=== PATIENT | male | born 1985 | race Caucasian/White ===

== ENCOUNTER 2019-12-09 08:07 | Observation (INO) | payer OTHER, BC ==
[2019-12-09] MEDS ORDERED: METHYLPREDNISOLONE INJ 40 MG/1 ML SDV IV ONE (09:45)
[2019-12-09] MEDS ORDERED: KETOROLAC TROMETHAMINE INJ/PF 30 MG/1 ML SDV IV ONE (09:45)
[2019-12-09] MEDS ORDERED: DIPHENHYDRAMINE HCL 50 MG/ML VIAL IV ONE (09:45)
--- NOTE | 2019-12-09 10:40 | ER Document Report ---
ED General - General Chief Complaint: Arm Problem Stated Complaint: INSECT BITE Time Seen by Provider: 12/09/19 09:19 Notes: [id number]-puxprmbx male presents with left forearm pain distally at the site of an insect or spider bite sustained while he was - Related Data Allergies/Adverse Reactions: No Known Allergies Allergy (Verified 12/09/19 09:13) Past Medical History - Social History Smoking Status: Never Smoker Chew tobacco use (# tins/day): No Frequency of alcohol use: Occasional Drug Abuse: None Patient has homicidal ideation: No Physical Exam - Vital signs Vitals: Temp Pulse Resp BP Pulse Ox 98.3 F 59 L 17 130/81 H 100 12/09/19 08:18 12/09/19 08:18 12/09/19 08:18 12/09/19 08:18 12/09/19 08:18 Course - Vital Signs Vital signs: Temp Pulse Resp BP Pulse Ox 98.3 F 59 L 17 130/81 H 100 12/09/19 09:14 12/09/19 08:18 12/09/19 08:18 12/09/19 08:18 12/09/19 08:18
--- NOTE | 2019-12-09 10:43 | ER Document Report ---
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 This started a few hours ago. Yesterday he was cleaning out a hole in the dirt and was called on by multiple spiders including what he thought was a black , and aunts and bees. He is not sure what bit him or stung him but he did get a wound on the volar wrist which is progressed to redness swelling and tightness in the forearm. It radiates up to his elbow and down to his fingers. No tingling other than the fingers, no systemic symptoms belly pain cramping etc. No open wounds but spreading redness and pressure. - Related Data Allergies/Adverse Reactions: No Known Allergies Allergy (Verified 12/09/19 09:13) Past Medical History - General Information source: Patient - Social History Smoking Status: Never Smoker Chew tobacco use (# tins/day): No Frequency of alcohol use: Occasional Drug Abuse: None Family History: None Patient has homicidal ideation: No Review of Systems - Review of Systems Notes: REVIEW OF SYSTEMS GEN: Denies fever, chills, weight loss ENT: Denies sore throat, nasal discharge, ear pain EYES: Denies blurry vision, eye pain, discharge CV: Denies chest pain, palpitations, edema RESP: Denies cough, shortness of breath, wheezing GI: Denies abdominal pain, nausea, vomiting, diarrhea MSK: Arm pain SKIN: Denies rash, skin lesions LYMPH: Denies swollen glands/lymph nodes NEURO: Tingling in fingers PHYSICAL EXAMINATION General: No acute distress, well-nourished Head: Atraumatic, normocephalic ENT: Mouth normal, oropharynx moist, no exudates or tonsillar enlargement Eyes: Conjunctiva normal, pupils equal, lids normal Neck: No JVD, supple, no guarding CVS: Normal rate, regular rhythm, no murmurs Resp: No resp distress, equal and normal breath sounds bilaterally GI: Nondistended, soft, no tenderness to palpation, no rebound or guarding Ext: Tightness and tenderness with firm compartment in the distal half of the volar left forearm with pain on passive finger extension. Good cap refill and circulation distally t Back: No CVA or midline TTP Skin: No rash, warm Lymphatic: No lymphadeopathy noted Neuro: Awake, alert. Face symmetric. GCS 15. Normal sensation and mild decrease sensation in the fourth through fifth digit on the left. Physical Exam - Vital signs Vitals: Temp Pulse Resp BP Pulse Ox 98.3 F 59 L 17 130/81 H 100 12/09/19 08:18 12/09/19 08:18 12/09/19 08:18 12/09/19 08:18 12/09/19 08:18 Course - Re-evaluation Re-evalutation: 12/09/19 15:00insect bite with soft tissue edema and possibly early compression of intracompartmental structures in the volar forearm compartmentNext he agrees the patient should be elevated and observed, but does not think he needs the OR at this point and did not check compartment pressure. He requested admit to hospitalist I did give the patient Toradol which resulted in pain as well as Benadryl and Solu-Medrol. He was placed in forced elevation with a hanging arm up on an IV pole and had some mild improvement on repeat assessment. He was discussed with Dr. Townsend for admission overnight immediately discussed with Dr. Olson from [facility] who came to the ED to evaluate the patient. - Vital Signs Vital signs: Temp Pulse Resp BP Pulse Ox 98.3 F 59 L 18 114/84 99 12/09/19 09:14 12/09/19 08:18 12/09/19 12:00 12/09/19 12:00 12/09/19 14:00 - Laboratory Result Diagrams: 12/09/19 10:40 12/09/19 10:40 Laboratory results interpreted by me: 12/09/19 10:40 BUN 22 H Critical Care Note - Critical Care Note Total time excluding time spent on procedures (mins): 31 Comments: The above patient is critically ill. Not including procedures, but including direct re-evaluations, speaking with patient and/or consultants, interpreting r esults, and documenting, I spent the total amount of minute listed listed above on critical care time Discharge - Discharge Clinical Impression: Insect bite of arm, left Qualifiers: Encounter type: initial encounter Qualified Code(s): S40.862A - Insect bite (nonvenomous) of left upper arm, initial encounter Condition: Fair Disposition: ADMITTED OBSERVATION Admitting Provider: Cary (Hospitalist) - [facility] Unit Admitted: Medical Floor
[2019-12-09] MEDS ORDERED: CEFTRIAXONE INJ 1000 MG VIAL IV SCH (11:30)
--- NOTE | 2019-12-09 11:48 | PDOC H&P ---
History of Present Illness Patient complains of: pain in left lower arm and hand History of Present Illness: REYES BURKS is a 34 year old male with no significant major presented to the ED with complaints of left wrist and hand pain following an ant bite on 12/08/2019. According to the patient he had his hands down a whole when he felt something bite him on the wrist. He pulled his hand back and saw that there was an ant attached to his arm/wrist. At the time he did not think much of the incident however over subsequent hours he started to notice that he was developing redness, pain, and swelling of the area where the ant was attached and also distally. This was associated with difficulty making a fist 2/2 swelling and pain. Past Medical History Medical History: None Past Surgical History Past Surgical History: Reports: None Social History Information Source: Patient Lives with: Spouse/Significant other Smoking Status: Never Smoker Electronic Cigarette use?: No Frequency of Alcohol Use: Rare Hx Recreational Drug Use: No Drugs: None Hx Prescription Drug Abuse: No - Advance Directive Resuscitation Status: Full Code Family History Family History: None Parental Family History Reviewed: Yes - Noncontributory Children Family History Reviewed: NA Sibling(s) Family History Reviewed.: Yes Medication/Allergy Home Medications: No Home Medications 12/09/19 Allergies/Adverse Reactions: No Known Allergies Allergy (Verified 12/09/19 09:13) Review of Systems Constitutional: ABSENT: chills, fever(s), night sweats, weakness Eyes: ABSENT: visual disturbances Ears: ABSENT: hearing changes Nose, Mouth, and Throat: ABSENT: headache(s), mouth pain, sore throat, vertigo Cardiovascular: PRESENT: edema - Left wrist and hand. ABSENT: chest pain, dyspnea on exertion, orthropnea, palpitations Respiratory: ABSENT: cough, dyspnea Gastrointestinal: ABSENT: abdominal pain, constipation, diarrhea, dysphagia, heartburn, hematemesis, hematochezia, melena, nausea, vomiting Genitourinary: ABSENT: difficulty urinating, dysuria, hematuria, nocturia Musculoskeletal: ABSENT: back pain, muscle weakness Integumentary: PRESENT: erythema - Left wrist and hand, lesions - Volar aspect of the left wrist. ABSENT: diaphoresis, pruritus Neurological: PRESENT: tingling - Minimal tingling of hand and fingers (left). ABSENT: abnormal movements, abnormal speech, confusion, focal weakness, lack of coordination, memory loss, numbness, tremor(s), weakness Psychiatric: ABSENT: anxiety, depression Endocrine: ABSENT: cold intolerance, heat intolerance, polydipsia, polyphagia, polyuria Hematologic/Lymphatic: ABSENT: easy bleeding, easy bruising Physical Exam Vital Signs: Temp Pulse Resp BP Pulse Ox 98.3 F 59 L 17 130/81 H 100 12/09/19 09:14 12/09/19 08:18 12/09/19 08:18 12/09/19 08:18 12/09/19 08:18 Intake & Output 12/08/19 12/09/19 12/10/19 06:59 06:59 06:59 Weight 101 kg General appearance: PRESENT: no acute distress, cooperative, well-developed, well-nourished Head exam: PRESENT: atraumatic, normocephalic Eye exam: PRESENT: conjunctiva pink, EOMI, PERRLA Ear exam: PRESENT: normal external ear exam Mouth exam: PRESENT: moist, tongue midline Teeth exam: ABSENT: dental caries Throat exam: ABSENT: post pharyngeal erythema, tonsillar erythema Neck exam: PRESENT: full ROM. ABSENT: JVD, lymphadenopathy, thyromegaly Respiratory exam: PRESENT: clear to auscultation miguel, symmetrical, unlabored. ABSENT: accessory muscle use Cardiovascular exam: PRESENT: RRR, +S1, +S2 Pulses: PRESENT: normal carotid pulses, other - Right radial pulses 2+ left radial pulse 1/2+. No blanching, pallor, cyanosis of hand/fingers (left) Minimal edema. Vascular exam: PRESENT: normal capillary refill. ABSENT: pallor GI/Abdominal exam: PRESENT: normal bowel sounds, soft. ABSENT: diminished bowel sounds, distended, tenderness Rectal exam: PRESENT: deferred Extremities exam: PRESENT: full ROM. ABSENT: calf tenderness, clubbing, pedal edema Musculoskeletal exam: PRESENT: full ROM Neurological exam: PRESENT: alert, awake, oriented to person, oriented to place, oriented to time, oriented to situation, CN II-XII grossly intact. ABSENT: motor sensory deficit Psychiatric exam: ABSENT: agitated, anxious Skin exam: PRESENT: dry, warm Assessment and Plan - Diagnosis (1) Insect bite of arm, left Qualifiers: Encounter type: initial encounter Qualified Code(s): S40.862A - Insect bite (nonvenomous) of left upper arm, initial encounter; W57.XXXA - Bitten or stung by nonvenomous insect and other nonvenomous arthropods, initial encounter Is this a current diagnosis for this admission?: Yes Plan: Patient was evaluated by surgery in the ED and they did not feel that there was overt compartmental syndrome necessitating surgical intervention Admit to observation Start diphenhydramine 25 mg p.o. every 6 hours Start famotidine 20 mg p.o. every 12 hours Neurovascular checks every 2 hours (2) Cellulitis Qualifiers: Site of cellulitis: other site Qualified Code(s): L03.818 - Cellulitis of other sites Is this a current diagnosis for this admission?: Yes Plan: Start ceftriaxone 1 g IV every 24 hours - Time Time Spent with patient: 35 or more minutes Medications reviewed and adjusted accordingly: Yes Anticipated discharge: Home Within: within 36 hours
[2019-12-09] MEDS: DIPHENHYDRAMINE HCL 25 MG CAPSULE PO SCH ×2 (12:07→18:29)
[2019-12-09] MEDS: FAMOTIDINE 20 MG TABLET PO SCH (12:07)
[2019-12-09] MEDS: CEFTRIAXONE 1 GM/D5W RTU 1 GM/50 ML RTUPB IV SCH (12:09)
[2019-12-09 13:32] LABS: ABSOLUTE BASOPHILS # (AUTO) 0.1 10^3/uL (0.0-0.2); ABSOLUTE EOSINOPHILS # (AUTO) 0.3 10^3/uL (0.0-0.6); ABSOLUTE LYMPHOCYTES (AUTO) 1.9 10^3/uL (0.5-4.7); ABSOLUTE MONOCYTES (AUTO) 0.5 10^3/uL (0.1-1.4); ABSOLUTE NEUT (AUTO) 3.5 10^3/uL (1.7-8.2); BASOPHILS % (AUTO) 0.8 % (0-2); EOSINOPHILS % (AUTO) 4.3 % (0-6); HEMATOCRIT 40.6 % (37.9-51.0); HEMOGLOBIN 13.9 g/dL (13.5-17.0); LYMPHOCYTES % (AUTO) 30.7 % (13-45); MEAN CORPUSCULAR HEMOGLOBIN 29.6 pg (27.0-33.4); MEAN CORPUSCULAR HGB CONC 34.1 g/dL (32.0-36.0); MEAN CORPUSCULAR VOLUME 87 fl (80-97); MONOCYTES % (AUTO) 8.1 % (3-13); PLATELET COUNT 264 10^3/uL (150-450); RED BLOOD COUNT 4.68 10^6/uL (4.35-5.55); RED CELL DISTRIBUTION WIDTH 13.7 % (11.5-14.0); SEGMENTED NEUTROPHILS % (AUTO) 56.1 % (42-78); TOTAL CELLS COUNTED % (AUTO) 100 %; WHITE BLOOD COUNT 6.2 10^3/uL (4.0-10.5)
[2019-12-09 13:48] LABS: ANION GAP 6 (5-19); BLOOD UREA NITROGEN 22 mg/dL (7-20); CALCIUM 9.3 mg/dL (8.4-10.2); CARBON DIOXIDE 30 mmol/L (22-30); CHLORIDE 102 mmol/L (98-107); GLUCOSE 92 mg/dL (75-110); POTASSIUM 4.5 mmol/L (3.6-5.0)
--- NOTE | 2019-12-09 14:59 | PDOC CONSULTATION ---
Consultation Consult Date: 12/09/19 Provider Consulted: AUGIE RAMOS JR History of Present Illness Admission Date/PCP: 12/09/19 11:40 History of Present Illness: REYES BURKS is a 34 year old male who reports being outside on 12/08/2019 and at that time he was working in the yard and apparently got bit by ants on the radial aspect of his left wrist. Since then he has had progressive erythematous tracking proximally and beginning to have some stiffness in his hand. He did not think of much of insulin initially but now reports ongoing progressive pain and tenseness with erythema swelling and concern for hand range of motion due to pain. He denies fever. Pain described as burning, 6 out of 10, worse with mot ion and passive attempted extension of the fingers. He is tried [id number]-[id number] pain medication including Motrin however this did not lead to much benefit and presented to the emergency department. Past Surgical History Past Surgical History: Reports: None Social History Lives with: Spouse/Significant other Smoking Status: Never Smoker Electronic Cigarette use?: No Frequency of Alcohol Use: Rare Hx Recreational Drug Use: No Drugs: None Hx Prescription Drug Abuse: No - Advance Directive Resuscitation Status: Full Code Family History Family History: None Parental Family History Reviewed: No Children Family History Reviewed: NA Sibling(s) Family History Reviewed.: NA Medication/Allergy Home Medications: No Home Medications 12/09/19 Allergies/Adverse Reactions: No Known Allergies Allergy (Verified 12/09/19 09:13) Review of Systems Review of Systems: Constitutional: ABSENT: anorexia, chills, night sweats Cardiovascular: ABSENT: chest pain Respiratory: ABSENT: dyspnea Gastrointestinal: ABSENT: vomiting Genitourinary: ABSENT: dysuria Integumentary: ABSENT: rash Neurological: ABSENT: confusion, memory loss, numbness Psychiatric: ABSENT: hallucinations Hematologic/Lymphatic: ABSENT: easy bleeding Physical Exam Vital Signs: Temp Pulse Resp BP Pulse Ox 98.3 F 59 L 18 114/84 99 12/09/19 09:14 12/09/19 08:18 12/09/19 12:00 12/09/19 12:00 12/09/19 14:00 Intake & Output 12/08/19 12/09/19 12/10/19 06:59 06:59 06:59 Intake Total 50 Balance 50 Weight 101 kg Physical Exam: General appearance: PRESENT: no acute distress, cooperative, well-nourished Head exam: PRESENT: atraumatic, normocephalic Eye exam: PRESENT: EOMI Ear exam: PRESENT: normal external ear exam Mouth exam: PRESENT: neck supple Neck exam: ABSENT: tracheal deviation Respiratory exam: PRESENT: symmetrical, unlabored. ABSENT: accessory muscle use, wheezes Pulses: PRESENT: normal radial pulses, normal dorsalis pedis pulse Vascular exam: PRESENT: normal capillary refill GI/Abdominal exam: ABSENT: distended, firm Extremities exam: PRESENT: full ROM of bilateral shoulders, elbows wrists, knees, hips and ankles without pain Musculoskeletal exam: PRESENT: full ROM, normal inspection of all 4 extremities aside from that noted below. Neurological exam: PRESENT: alert, awake, oriented to person, oriented to place, oriented to time Psychiatric exam: PRESENT: appropriate affect. ABSENT: agitated Focused psych exam: ABSENT: catatonic Skin exam: PRESENT: intact. ABSENT: dry All as above aside from that noted in the HPI and the following: Left upper extremity Passive range of motion of the wrist without considerable pain up to 30 degrees of extension at which time there is pain especially with concomitant passive finger extension Left upper extremities rest neurovascular intact. There is no palpable abscess or fluid wave. There is no central nidus or area of necrosis. He does have a's very small abrasion at the radial aspect of the volar left wrist with granular type tissue. This is approximately 2 x 2 mm without overt drainage for apparent necrotic tissue. There is some induration of the volar forearm without fluctuance. Attempted passive extension of the fingers he has to near full extension but with some discomfort mostly in the volar forearm. Erythema tracks in the proximal two third of the forearm. Results Laboratory Results: 12/09/19 10:40 12/09/19 10:40 12/09/19 12/09/19 10:40 10:40 WBC 6.2 RBC 4.68 Hgb 13.9 Hct 40.6 MCV 87 MCH 29.6 MCHC 34.1 RDW 13.7 Plt Count 264 Seg Neutrophils % 56.1 Sodium 137.6 Potassium 4.5 Chloride 102 Carbon Dioxide 30 Anion Gap 6 BUN 22 H Creatinine 0.95 Est GFR ( Amer) > 60 Glucose 92 Calcium 9.3 Assessment & Plan - Diagnosis (1) Cellulitis Qualifiers: Site of cellulitis: other site Qualified Code(s): L03.818 - Cellulitis of other sites Is this a current diagnosis for this admission?: Yes Plan: At this time it appears mostly be cellulitis and may involve some myositis or deeper tissue. There does not appear to be any drainable abscess or infection, however the aggressiveness of this small ant bite over the last day is concerning. I have advised admission to the hospital with IV antibiotics overnight to reevaluate in the morning. Will plan for MRI left upper extremity tomorrow morning to see if there is any developing fluid collections or drainable abscess, for potential myositis or signs of necrotizing fasciitis. If there is further concern after 24 hours antibiotics will proceed with I&D le ft forearm. Keep n.p.o. tonight after midnight Antibiotics per hospitalist team Physical therapy to attempt range of motion of the hand
[2019-12-09] MEDS ORDERED: HYDROXYZINE HCL 10 MG TABLET PO PRN (19:03)
[2019-12-09] MEDS ORDERED: DIPHENHYDRAMINE HCL 50 MG/ML VIAL IV PRN (19:04)
[2019-12-10] MEDS: DIPHENHYDRAMINE HCL 25 MG CAPSULE PO SCH ×3 (00:36→11:27)
[2019-12-10] MEDS: FAMOTIDINE 20 MG TABLET PO SCH ×2 (00:36→10:00)
[2019-12-10 06:21] LABS: MEAN CORPUSCULAR HEMOGLOBIN 29.8 pg (27.0-33.4); MEAN CORPUSCULAR HGB CONC 34.1 g/dL (32.0-36.0); MEAN CORPUSCULAR VOLUME 88 fl (80-97); PLATELET COUNT 223 10^3/uL (150-450); RED BLOOD COUNT 4.35 10^6/uL (4.35-5.55); RED CELL DISTRIBUTION WIDTH 13.5 % (11.5-14.0); WHITE BLOOD COUNT 10.5 10^3/uL (4.0-10.5)
[2019-12-10 06:44] LABS: ANION GAP 8 (5-19); BLOOD UREA NITROGEN 23 mg/dL (7-20); CALCIUM 9.1 mg/dL (8.4-10.2); CARBON DIOXIDE 25 mmol/L (22-30); CHLORIDE 106 mmol/L (98-107); GLUCOSE 112 mg/dL (75-110)
--- NOTE | 2019-12-10 07:27 | PDOC PROGRESS REPORT ---
Subjective Progress Note for:: 12/10/19 Subjective:: Patient reports much improvement this morning. Pain is improved as well as ability to actively range fingers and wrist without pain. Erythema and tenseness of volar forearm soft tissue is also improved. Reason For Visit: INSECT BITE OF ARM LEFT WITH CELLULITIS Physical Exam Vital Signs: Temp Pulse Resp BP Pulse Ox 97.8 F 62 18 112/60 98 12/09/19 22:05 12/09/19 22:05 12/09/19 22:05 12/09/19 22:05 12/09/19 22:05 Intake & Output 12/09/19 12/10/19 12/11/19 06:59 06:59 06:59 Intake Total 290 Balance 290 Weight 101 kg Physical Exam: General appearance: PRESENT: no acute distress, cooperative, well-nourished Head exam: PRESENT: atraumatic, normocephalic Eye exam: PRESENT: EOMI Ear exam: PRESENT: normal external ear exam Mouth exam: PRESENT: neck supple Neck exam: ABSENT: tracheal deviation Respiratory exam: PRESENT: symmetrical, unlabored. ABSENT: accessory muscle use, wheezes Pulses: PRESENT: normal radial pulses, normal dorsalis pedis pulse Vascular exam: PRESENT: normal capillary refill GI/Abdominal exam: ABSENT: distended, firm Extremities exam: PRESENT: full ROM of bilateral shoulders, elbows wrists, knees, hips and ankles without pain Musculoskeletal exam: PRESENT: full ROM, normal inspection of all 4 extremities aside from that noted below. Neurological exam: PRESENT: alert, awake, oriented to person, oriented to place, oriented to time Psychiatric exam: PRESENT: appropriate affect. ABSENT: agitated Focused psych exam: ABSENT: catatonic Skin exam: PRESENT: intact. ABSENT: dry All as above aside from that noted in the HPI and the following: Upper extremity sensation grossly intact to radial median and ulnar nerve. upper extremity motor function grossly intact to radian median ulnar nerve AIN and PIN Pulses 2+, capillary refill less than 2 seconds No deformity noted full range of motion of the elbow shoulder wrist and fingers without pain Compartments soft, no tenderness to palpation skin intact Erythema appears to have improved as well as skin swelling. Patient able to actively and passively range fingers and wrist this morning without pain. Results Laboratory Results: 12/10/19 05:51 12/10/19 05:51 12/09/19 12/09/1920 10:40 10:40 05:51 WBC 6.2 10.5 RBC 4.68 4.35 Hgb 13.9 13.0 L Hct 40.6 38.0 MCV 87 88 MCH 29.6 29.8 MCHC 34.1 34.1 RDW 13.7 13.5 Plt Count 264 223 Seg Neutrophils % 56.1 Sodium 137.6 Potassium 4.5 Chloride 102 Carbon Dioxide 30 Anion Gap 6 BUN 22 H Creatinine 0.95 Est GFR ( Amer) > 60 Glucose 92 Calcium 9.3 12/10/19 05:51 WBC RBC Hgb Hct MCV MCH MCHC RDW Plt Count Seg Neutrophils % Sodium 138.8 Potassium 4.0 Chloride 106 Carbon Dioxide 25 Anion Gap 8 BUN 23 H Creatinine 0.97 Est GFR ( Amer) > 60 Glucose 112 H Calcium 9.1 Assessment & Plan - Diagnosis (1) Cellulitis Qualifiers: Site of cellulitis: other site Qualified Code(s): L03.818 - Cellulitis of other sites Is this a current diagnosis for this admission?: Yes Plan: This appears substantially better than yesterday, given the patient's ability to move his wrist and hand this morning I am less concerned about myositis and potential fasciitis. -Patient is likely stable for discharge home on oral antibiotics -I have counseled him to consider urgent return to the hospital if there is any acute changes. - Time Time Spent with patient: Less than 15 minutes
[2019-12-10] MEDS: CEFTRIAXONE 1 GM/D5W RTU 1 GM/50 ML RTUPB IV SCH (11:27)
--- NOTE | 2019-12-10 11:54 | PDOC DISCHARGE SUMMARY ---
Impression - Admit/DC Date/PCP Admission Date/Primary Care Provider: 12/09/19 11:40 Discharge Date: 12/10/19 - Discharge Diagnosis (1) Insect bite of arm, left Is this a current diagnosis for this admission?: Yes (2) Cellulitis Is this a current diagnosis for this admission?: Yes - Additional Information Resuscitation Status: Full Code Discharge Diet: As Tolerated Discharge Activity: Activity As Tolerated Referrals: AUGIE RAMOS JR, DO [ACTIVE PROVISIONAL STAFF] - Prescriptions: Diphenhydramine HCl [Benadryl 25 mg Capsule] 25 mg PO Q6 5 Days capsule Cephalexin Monohydrate [Keflex 500 mg Capsule] 500 mg PO Q8H 8 Days capsule Famotidine [Pepcid 20 mg Tablet] 20 mg PO Q12 5 Days tablet Home Medications: Cephalexin Monohydrate [Keflex 500 mg Capsule] 500 mg PO Q8H 8 Days capsule Diphenhydramine HCl [Benadryl 25 mg Capsule] 25 mg PO Q6 5 Days capsule 12/10/19 Famotidine [Pepcid 20 mg Tablet] 20 mg PO Q12 5 Days tablet 12/10/19 History of Present Illiness History of Present Illness: REYES BURKS is a 34 year old male with no significant major presented to the ED with complaints of left wrist and hand pain following an ant bite on 12/08/2019. According to the patient he had his hands down a whole when he felt something bite him on the wrist. He pulled his hand back and saw that there was an ant attached to his arm/wrist. At the time he did not think much of the incident however over subsequent hours he started to notice that he was developing redness, pain, and swelling of the area where the ant was attached and also distally. This was associated with difficulty making a fist 2/2 swelling and pain. Hospital Course Hospital Course: The patient was admitted to observation and IV antibiotics as well as Benadryl and Pepcid were initiated. He was seen by orthopedics who did not feel acute surgical intervention was indicated. They initially planned for MRI of the left upper extremity on the morning of 12/10/2019 however, when they evaluated the patient that morning he was found to be significantly improved. He had return of ROM in his wrist and hand and they did not feel that the MRI was necessary. Recommendations were made for discharge to home on oral antibiotics. Physical Exam Vital Signs: Temp Pulse Resp BP Pulse Ox 97.5 F 67 16 109/57 L 100 12/10/19 07:31 12/10/19 07:31 12/10/19 07:31 12/10/19 07:31 12/10/19 07:31 Intake & Output 12/09/19 12/10/19 12/11/19 06:59 06:59 06:59 Intake Total 290 Balance 290 Weight 101 kg General appearance: PRESENT: no acute distress, cooperative, well-developed, well-nourished Head exam: PRESENT: atraumatic, normocephalic Eye exam: PRESENT: conjunctiva pink Mouth exam: PRESENT: moist, tongue midline Neck exam: PRESENT: full ROM. ABSENT: JVD Respiratory exam: PRESENT: clear to auscultation miguel, symmetrical, unlabored. ABSENT: accessory muscle use, wheezes Cardiovascular exam: PRESENT: RRR, +S1, +S2 Pulses: PRESENT: normal carotid pulses, normal radial pulses Vascular exam: PRESENT: normal capillary refill GI/Abdominal exam: PRESENT: normal bowel sounds, soft. ABSENT: distended, tenderness Rectal exam: PRESENT: deferred Extremities exam: PRESENT: full ROM. ABSENT: calf tenderness, pedal edema Neurological exam: PRESENT: alert, awake, oriented to person, oriented to place, oriented to time, oriented to situation, CN II-XII grossly intact, motor sensory deficit Psychiatric exam: ABSENT: agitated, anxious Skin exam: PRESENT: dry, normal color, warm - Erythema of left wrist and hand significantly improved from prior day. Wrist remains slightly warmer to touch than contralateral extremity. There is no exudate from the "Ant bite" Results Laboratory Results: WBC 10.5 10^3/uL (4.0-10.5) 12/10/19 05:51 RBC 4.35 10^6/uL (4.35-5.55) 12/10/19 05:51 Hgb 13.0 g/dL (13.5-17.0) L 12/10/19 05:51 Hct 38.0 % (37.9-51.0) 12/10/19 05:51 MCV 88 fl (80-97) 12/10/19 05:51 MCH 29.8 pg (27.0-33.4) 12/10/19 05:51 MCHC 34.1 g/dL (32.0-36.0) 12/10/19 05:51 RDW 13.5 % (11.5-14.0) 12/10/19 05:51 Plt Count 223 10^3/uL (150-450) 12/10/19 05:51 Lymph % (Auto) 30.7 % (13-45) 12/09/19 10:40 [place] % (Auto) 8.1 % (3-13) 12/09/19 10:40 Eos % (Auto) 4.3 % (0-6) 12/09/19 10:40 Baso % (Auto) 0.8 % (0-2) 12/09/19 10:40 Absolute Neuts (auto) 3.5 10^3/uL (1.7-8.2) 12/09/19 10:40 Absolute Lymphs (auto) 1.9 10^3/uL (0.5-4.7) 12/09/19 10:40 Absolute Monos (auto) 0.5 10^3/uL (0.1-1.4) 12/09/19 10:40 Absolute Eos (auto) 0.3 10^3/uL (0.0-0.6) 12/09/19 10:40 Absolute Basos (auto) 0.1 10^3/uL (0.0-0.2) 12/09/19 10:40 Seg Neutrophils % 56.1 % (42-78) 12/09/19 10:40 Sodium 138.8 mmol/L (137-145) 12/10/19 05:51 Potassium 4.0 mmol/L (3.6-5.0) 12/10/19 05:51 Chloride 106 mmol/L (98-107) 12/10/19 05:51 Carbon Dioxide 25 mmol/L (22-30) 12/10/19 05:51 Anion Gap 8 (5-19) 12/10/19 05:51 BUN 23 mg/dL (7-20) H 12/10/19 05:51 Creatinine 0.97 mg/dL (0.52-1.25) 12/10/19 05:51 Est GFR ( Amer) > 60 (>60) 12/10/19 05:51 Est GFR (MDRD) Non-Af > 60 (>60) 12/10/19 05:51 Glucose 112 mg/dL (75-110) H 12/10/19 05:51 Calcium 9.1 mg/dL (8.4-10.2) 12/10/19 05:51 Plan Health Concerns: Patient was instructed that if he should develop worsening of swelling, numbness, tingling, fever, chills, nausea/vomiting, or any other unusual symptoms he should return to the ED immediately for evaluation Plan of Treatment: Patient will be discharged home on Benadryl and famotidine further antihistamine effects as well as oral antibiotics to complete a total of a 10-day course. He received 2 days of IV ceftriaxone in the hospital setting Goals: Complete resolution of cellulitis Time Spent: Greater than 30 Minutes Stroke Is this a Stroke Patient?: No Acute Heart Failure - Is this a Heart Failure Patient?: No
[2019-12-10 12:05] VITALS: BP 118/64
== END 2019-12-10 12:20 | disposition home or self-care (01) ==
LOC: ER 08:07 → EH 11:40 → 4N 17:52
PROVIDERS: ADMIT Hospitalist; ATTEND Nurse Practitioner
DX: S40.862A Insect bite (nonvenomous) of left upper arm, initial encounter (principal); L03.818 Cellulitis of other sites; W57.XXXA Bitten or stung by nonvenomous insect and other nonvenomous arthropods, initial encounter; Y93.89 Activity, other specified; R20.2 Paresthesia of skin
CPT/HCPCS: 99285; 96374; 96375; 36415 ×2; 85025; 85027; 80048 ×2; J1200; J2920; J1885; J3490 ×2; J0696 ×2; G0378